=== PATIENT | male | born 1965 | race Caucasian/White ===

== ENCOUNTER 2017-10-25 00:39 | Emergency (ER) | payer BC ==
[2017-10-25] MEDS ORDERED: ONDANSETRON 4 MG/2 ML VIAL ONE (00:46)
[2017-10-25] MEDS ORDERED: ONDANSETRON 4 MG/2 ML VIAL IVP ONE ×2 (00:47→03:19)
[2017-10-25] MEDS ORDERED: NS 1,000 ML IV ONE ×2 (00:48→03:28)
--- NOTE | 2017-10-25 01:35 | EDPHY ---
H & P Stated Complaint: HEAVY ETOH AFTER [employer] FIRED TODAY Time Seen by Provider: 10/25/17 01:10 HPI/ROS: Chief Complaint: Alcohol intoxication, vomiting HPI: 52-year-old male who was brought in by friends intoxicated. Patient passed out after vomiting. Is unable to ambulate on their own. Patient states he has been out drinking heavily after being fired today. Patient did not fall. Did not hit his head. He has vomited multiple times. Denies other medical problems. ROS: 10 point Review of Systems is negative except as noted in the HPI. PMH: Denies Medications: Denies Allergies: Denies Social History: Positive for alcohol Family History: non-contributory Physical Exam: Gen: Awake, alert, slurred speech, smells of alcohol and emesis HEENT: Atraumatic Nose: no epistaxis or deformity Eyes: PERRLA, EOMI Mouth: Moist mucosa Neck: Supple, no step-offs or deformity Chest: Atraumatic, lungs clear to auscultation Heart: S1, S2 normal, no murmur Abd: Soft, non-tender, no guarding Back: Atraumatic Ext: no edema, atraumatic Skin: no rash Neuro: Sensation grossly intact, Strength 5/5 in bilateral upper and lower extremities - Personal History Current Tetanus/Diphtheria Vaccine: Yes Current Tetanus Diphtheria and Acellular Pertussis (TDAP): Yes - Medical/Surgical History Hx Asthma: No Hx Chronic Respiratory Disease: No Hx Diabetes: No Hx Cardiac Disease: No Hx Renal Disease: No Hx Cirrhosis: No Hx Alcoholism: No Hx HIV/AIDS: No Hx Splenectomy or Spleen Trauma: No Other PMH: DEPRESSION, SEASONAL ALLERGIES - Social History Smoking Status: Heavy smoker Constitutional: Initial Vital Signs Temperature (C) 36.2 C 10/25/17 00:45 Heart Rate 71 10/25/17 00:45 Respiratory Rate 16 10/25/17 00:45 Blood Pressure 132/71 H 10/25/17 00:45 O2 Sat (%) 99 10/25/17 00:45 O2 Delivery Mode Room Air Allergies/Adverse Reactions: No Known Allergies Allergy (Unverified 10/25/17 00:47) Home Medications: Medication Instructions Recorded DULoxetine [Cymbalta 30 MG (*)] 30 mg PO HS 10/25/17 Fexofenadine HCl [Idania Allergy] 60 mg PO 10/25/17 Medical Decision Making ED Course/Re-evaluation: Patient is now awake and appropriate. Ambulating unassisted to the bathroom. No current complaints. Patient is tolerating oral fluids. Patient is ready for discharge with sober ride. - Data Points Medications Given: Discontinued Medications Sodium Chloride (Ns) 1,000 mls @ 0 mls/hr IV ONCE ONE PRN Reason: Wide Open Stop: 10/25/17 00:49 Last Admin: 10/25/17 00:50 Dose: 1,000 mls Ondansetron HCl (Zofran) 4 mg IVP EDNOW ONE Stop: 10/25/17 00:48 Last Admin: 10/25/17 00:50 Dose: 4 mg Departure - Departure Disposition: Home, Routine, Self-Care Clinical Impression: Alcoholic intoxication Condition: Good Instructions: Alcohol Intoxication (ED) Referrals: Deric Maria MD [Primary Care Provider] - As per Instructions
[2017-10-25 02:28] VITALS: RESP 18; TEMP 97.9
[2017-10-25 04:15] VITALS: BP 136/84; PULSE 78; O2SAT 95
== END 2017-10-25 04:20 | disposition home or self-care (01) ==
DX: F10.129 Alcohol abuse with intoxication, unspecified (principal); E86.9 Volume depletion, unspecified; F17.200 Nicotine dependence, unspecified, uncomplicated
CPT/HCPCS: 96374; J2405